=== PATIENT | male | born 1975 | race Caucasian/White ===

== ENCOUNTER 2021-07-30 18:14 | Emergency (ER) | payer OTHER ==
[2021-07-31] MEDS ORDERED: PERCOCET 5-3251 EACH PO (00:09)
== END 2021-07-31 00:20 | disposition home or self-care (01) ==
LOC: FER 18:14
DX: S92.002A Unspecified fracture of left calcaneus, initial encounter for closed fracture (principal); F17.210 Nicotine dependence, cigarettes, uncomplicated; W19.XXXA Unspecified fall, initial encounter; Y92.89 Other specified places as the place of occurrence of the external cause; Y99.0 Civilian activity done for income or pay
CPT/HCPCS: 73610; 73630